=== PATIENT | male | born 1950 | race African-American/Black ===

== ENCOUNTER 2024-03-26 14:04 | Outpatient (CLI) | payer MEDICARE | END 2024-03-26 14:05 | disposition home or self-care (01) | LOC: SCSMRI 14:04 | PROVIDERS: ATTEND Psychiatry & Neurology Neurology | DX: R06.6 Hiccough (principal); I67.89 Other cerebrovascular disease | CPT/HCPCS: 70544; 70547; 70553; 82565 ==